=== PATIENT | male | born 1960 | race Caucasian/White ===

== ENCOUNTER → 2019-10-14 | Outpatient (CLI) | payer OTHER ==
[2019-10-14 13:35] VITALS: BP 139/90
[2019-10-14 13:41] LABS: HEMATOCRIT 52.2 % (42.0-52.0); HEMOGLOBIN 18.2 gm/dL (14.0-18.0)
[2019-10-14 14:00] VITALS: BP 149/91
[2019-10-14 14:25] VITALS: BP 135/84
== END ==
LOC: M.INFUS 13:00
PROVIDERS: Urology
DX: D75.1 Secondary polycythemia (principal)